=== PATIENT | male | born 1965 | race Two or more races ===

== ENCOUNTER 2018-05-02 14:30 | Emergency (ER) | payer OTHER ==
[~2018-05-02] VITALS: Ht 165.1 cm; Wt 62.1 kg
[2018-05-02 16:25] VITALS: BP 160/90
== END 2018-05-02 15:26 | disposition home or self-care (01) ==
LOC: FSED 14:30
DX: R50.9 Fever, unspecified (principal); R05 Cough; J06.9 Acute upper respiratory infection, unspecified
CPT/HCPCS: 99283